=== PATIENT | male | born 1950 | race Caucasian/White ===

== ENCOUNTER 2016-11-23 07:37 | Day surgery (SDC) | payer MEDICARE, OTHER ==
[2016-11-18 09:42] VITALS: BMI 36.6
[~2016-11-23 07:37] MED LIST: ALPRAZolam 0.25 MG TAB PO PRN; ALPRAZolam 0.5 MG TAB PO PRN; ASPIRIN 325 MG TAB PO STA; ATORVASTATIN 80 MG TAB PO STA; NITROGLYCERIN SL TABS 0.4 MG TAB SUBLINGUAL PRN; SODIUM CHLORIDE 0.9% 1,000 ML in EMPTY BAG 1 BAG IV ONE
[2016-11-23 08:11] LABS: Glucose,Whole Blood 140 mg/dL (75-99)
[2016-11-23] MEDS ORDERED: MIDAZOLAM 2 MG/2 ML VIAL ONE ×2 (08:43→09:09)
[2016-11-23] MEDS ORDERED: VERAPAMIL 2.5 MG/ML 2 ML AMP ONE (08:43)
[2016-11-23] MEDS ORDERED: LIDOCAINE 2% INJ 20 MG/ML (20 ML MDV) ONE (08:43)
[2016-11-23 08:54] LABS: Anion Gap 13 mmol/L; Blood Urea Nitrogen 18 mg/dL (9-20); Carbon Dioxide 23 mmol/L (22-30); Chloride 104 mmol/L (98-107); Glucose 144 mg/dL (74-99); Non-African American GFR(MDRD) >60 (>60 ml/min/1.73 sqM); Potassium 4.6 mmol/L (3.5-5.1); Sodium 140 mmol/L (137-145)
[2016-11-23] MEDS ORDERED: HEPARIN SODIUM 1,000 UN/ML (10ML VL) ONE ×2 (09:06→09:54)
[2016-11-23] MEDS ORDERED: LIDOCAINE 2% INJ 20 MG/ML SQ ONE ×2 (09:07→09:08)
[2016-11-23] MEDS ORDERED: MIDAZOLAM 2 MG/2 ML VIAL IV ONE ×2 (09:08→09:15)
[2016-11-23 09:09] LABS: Aty Lym Flag Slight; CHCM 34.2; HCT 44.9 % (39.0-53.0); HDW 2.58; HGB 15.4 gm/dL (13.0-17.5); MCH 32.2 pg (25.0-35.0); MCHC 34.3 g/dL (31.0-37.0); MCV 93.8 fL (80.0-100.0); Mean Platelet Volume 6.6; RBC 4.79 m/uL (4.30-5.90); RDW 12.2 % (11.5-15.5); WBC 5.9 k/uL (3.8-10.6); WBC (Perox) 5.71
[2016-11-23] MEDS ORDERED: VERAPAMIL SYRINGE (5 MG/10 ML) INTRAARTER ONE ×2 (09:13→09:42)
[2016-11-23] MEDS ORDERED: HEPARIN SODIUM 1,000 UN/ML (10ML VL) IV ONE (09:15)
[2016-11-23] MEDS ORDERED: NITROGLYCERIN 1000MCG/10ML SYRINGE INTRACORON ONE ×2 (09:19→09:34)
[2016-11-23 09:23] LABS: Add Differential Manual Differential
[2016-11-23] MEDS ORDERED: TICAGRELOR 90 MG TAB ONE (09:26)
[2016-11-23] MEDS ORDERED: TICAGRELOR 90 MG TAB PO ONE (09:28)
[2016-11-23 09:30] LABS: Band Neutrophils % 1 %; Manual Review Performed; Nucleated Red Blood Cells 0 /100 WBC (0-0); Total Cells Counted 100
[2016-11-23] MEDS ORDERED: fentaNYL (PF) 50 MCG/ML 2 ML AMP ONE (09:30)
[2016-11-23 09:31] LABS: RBC Morphology Normal
[2016-11-23] MEDS ORDERED: fentaNYL (PF) 50 MCG/ML 2 ML AMP IV ONE (09:32)
[2016-11-23] MEDS ORDERED: IODIXANOL 320 MG/ML 100 ML INTRAARTER ONE (09:43)
[2016-11-23] MEDS ORDERED: ATROPINE SULFATE 0.1 MG/ML 10ML SYRINGE IV PRN (09:53)
[2016-11-23] MEDS ORDERED: RX INFO: IV CONTRAST WAS GIVEN 1 EACH MISC MISCELLANE PRN (09:53)
[2016-11-23] MEDS ORDERED: ZOLPIDEM 5 MG TAB PO PRN (09:53)
[2016-11-23] MEDS ORDERED: NITROGLYCERIN SL TABS 0.4 MG TAB SUBLINGUAL PRN (09:53)
[2016-11-23] MEDS ORDERED: MAG HYDROX/AL HYDROX/SIMETH 30 ML CUP PO PRN (09:53)
[2016-11-23] MEDS ORDERED: SODIUM CHLORIDE 0.9% 1,000 ML IV SCH (10:00)
--- NOTE | 2016-11-23 11:05 | CC ---
CARDIAC CATHETERIZATION REPORT DATE OF SERVICE: 11/23/2016 PERFORMING PHYSICIAN: Abraham Hughes MD, Composite [employer] Technician. PROCEDURE PERFORMED: 1. Selective right and left coronary angiogram. 2. Left heart catheterization. 3. Successful stenting of the proximal LAD using 2.5 x 8 mm Xience SALTY with good angiographic results. INDICATION: This is a pleasant 65-year-old gentleman who sees Dr. Yaquelin Oreilly as an outpatient who was experiencing chest discomfort and underwent myocardial perfusion imaging stress test and that revealed apical ischemia. Because of that, heart catheterization was recommended from right radial approach. COMPLICATION: None. LEVEL OF SEDATION: Moderate with sedation length of 38 minutes. PROCEDURE DESCRIPTION: After obtaining an informed consent, the patient was brought to the [facility] [employer] [facility]. His right radial artery was cannulated using micropuncture technique, the micropuncture wire passed easily. Then I placed a 6-Portuguese sheath in the right radial artery. Subsequently, I did give the patient 2 mg of verapamil IA and 10,000 units of heparin IV. Subsequently I did selective right and left coronary angiogram using JR4 and JL3.5 catheters. After that, I did left heart catheterization using 6-Portuguese pigtail catheter. Subsequently, I did intervene on the LAD. Please see a separate paragraph for that. SELECTIVE CORONARY ANGIOGRAM: 1. The right coronary artery is a large caliber vessel and it is a dominant vessel. The right coronary artery is angiographically normal. It distally bifurcates into PDA and PLV branches. Both are angiographically normal. 2. The left main has mild disease only and it is a calcified left main. It bifurcates into left circumflex, ramus intermedius, and left anterior descending artery. 3. The left circumflex is a large caliber vessel. It is a nondominant vessel. The proximal left circumflex appeared to have mild disease only and gives rise into a large OM branch which seems to be angiographically normal and bifurcates into 2 separate branches, both are angiographically normal and the left circumflex continues after that as a small caliber vessel in the AV groove. 4. The ramus intermedius is a moderate caliber vessel with disease in the proximal portion about 50%. 5. The LAD. The proximal LAD has a lesion, appeared to be hazy and seems to be in the range of 50%. It gives rise into a large first diagonal branch which seems to be angiographically normal and the LAD in the mid and distal portion appeared to be angiographically normal. 6. PCI of the LAD. Heparin was given in the beginning. After that, I did wire the LAD using a whisper wire. After that, I did direct stenting on the lesion in the proximal LAD using 2.5 x 8 mm Xience SALTY where the stent was positioned under fluoroscopy guidance and deployed under 18 atmospheres for 20 seconds with the following angiogram showed good angiographic results without perforation and without dissection with good flow and without any pinch on the diagonal. CONCLUSION: 1. Intermittent episodes of chest discomfort associated with abnormal myocardial perfusion imaging stress test showing apical ischemia. 2. Normal right coronary artery and a dominant right coronary artery. 3. Mild disease involving the left main, which is a calcified left main. 4. Mild disease involving the left circumflex coronary system. 5. Intermediate disease involving the ramus intermedius coronary artery. 6. Severe disease involving the proximal LAD just proximal to the bifurcation of a diagonal branch. 7. Successful stenting of the proximal LAD using 2.5 x 8 mm Xience SALTY with good angiographic results. POSTPROCEDURE MANAGEMENT: 1. Dual anti-platelet therapy. 2. Risk factor modifications. Will follow up with the patient. MMODL / IJN: [id number] /
[2016-11-23] MEDS ORDERED: INSULIN LISPRO (humaLOG) 300 UNIT/3 ML VIAL SQ ONE (13:28)
[2016-11-23 14:11] LABS: Glucose,Whole Blood 210 mg/dL (75-99)
[2016-11-23 16:53] LABS: Glucose,Whole Blood 164 mg/dL (75-99)
[2016-11-23] MEDS ORDERED: ASPIRIN 81 MG PO SCH (17:30)
[2016-11-23] MEDS: INSULIN LISPRO (humaLOG) 300 UNIT/3 ML VIAL SQ SCH ×2 (17:38→21:13)
[2016-11-23 20:47] LABS: Glucose,Whole Blood 160 mg/dL (75-99)
[2016-11-23] MEDS ORDERED: ATORVASTATIN 40 MG TAB PO SCH (21:00)
[2016-11-23 21:01] LABS: Hemoglobin A1C 6.7 % (4.2-6.1)
[2016-11-23] MEDS: TICAGRELOR 90 MG TAB PO SCH (21:19)
[2016-11-23 21:42] VITALS: RESP 16
[2016-11-24 06:05] LABS: Glucose,Whole Blood 147 mg/dL (75-99)
[2016-11-24 06:49] LABS: Basophils % (A) 1 %; CH 33.1; CHCM 34.6; Eosinophils # (A) 0.2 k/uL (0-0.7); Eosinophils % (A) 3 %; HCT 42.8 % (39.0-53.0); HDW 2.47; HGB 14.1 gm/dL (13.0-17.5); Luc # (Auto) 0.24; Luc % (Auto) 4; Lymphocytes # (A) 1.6 k/uL (1.0-4.8); Lymphocytes % (A) 26 %; MCH 31.8 pg (25.0-35.0); MCV 96.2 fL (80.0-100.0); Mean Platelet Volume 6.8; Monocytes # (A) 0.5 k/uL (0-1.0); Monocytes % (A) 8 %; Neutrophils # (A) 3.7 k/uL (1.3-7.7); Neutrophils % (A) 59 %; RBC 4.45 m/uL (4.30-5.90); RDW 13.5 % (11.5-15.5); WBC 6.2 k/uL (3.8-10.6); WBC (Perox) 6.57
[2016-11-24 06:56] LABS: Anion Gap 11 mmol/L; Blood Urea Nitrogen 18 mg/dL (9-20); Calcium 9.3 mg/dL (8.4-10.2); Carbon Dioxide 24 mmol/L (22-30); Chloride 105 mmol/L (98-107); Glucose 148 mg/dL (74-99); Non-African American GFR(MDRD) >60 (>60 ml/min/1.73 sqM); Potassium 4.4 mmol/L (3.5-5.1); Sodium 140 mmol/L (137-145)
[2016-11-24] MEDS: INSULIN LISPRO (humaLOG) 300 UNIT/3 ML VIAL SQ SCH (07:02)
[2016-11-24] MEDS ORDERED: PANTOPRAZOLE 40 MG TABLET PO SCH (07:30)
[2016-11-24 08:05] VITALS: BP 148/74; PULSE 75; TEMP 97
[2016-11-24] MEDS: TICAGRELOR 90 MG TAB PO SCH (08:14)
[2016-11-24] MEDS ORDERED: LISINOPRIL 5 MG TAB PO SCH (09:00)
--- NOTE | 2016-11-24 09:45 | DS ---
DISCHARGE SUMMARY ADMISSION DATE: 11/23/2016 DISCHARGE DATE: 11/24/2016 BRIEF HISTORY: This is a pleasant 65-year-old gentleman who sees Dr. Oreilly as an outpatient who was experiencing intermittent episodes of chest discomfort and underwent myocardial perfusion imaging stress test and that showed apical ischemia. He underwent heart catheterization yesterday from right radial artery approach and that showed severe disease involving the proximal LAD which was stented using 2.5 x 8 mm Xience drug- eluting stent with good angiographic results and without any complication. The patient is going to be discharged home on dual anti-platelet and statin and he will follow up with Dr. VC Oreilly in the office as an outpatient. MMODL / IJN: [id number] /
== END 2016-11-24 11:28 | disposition home or self-care (01) ==
LOC: CATHCVL 07:37 → 6SEL 13:11 → CATHCVL 11-24 11:28
PROVIDERS: ATTEND Internal Medicine Interventional Cardiology
DX: I25.110 Atherosclerotic heart disease of native coronary artery with unstable angina pectoris (principal); I10 Essential (primary) hypertension; E11.9 Type 2 diabetes mellitus without complications; E78.2 Mixed hyperlipidemia; Z79.899 Other long term (current) drug therapy; Z79.84 Long term (current) use of oral hypoglycemic drugs; Z79.82 Long term (current) use of aspirin; Z79.51 Long term (current) use of inhaled steroids; Z82.49 Family history of ischemic heart disease and other diseases of the circulatory system
CPT/HCPCS: 93458; 99153 ×2; 99152; 80048 ×2; 83036; 85025 ×2; C9600; C1769 ×2; C1887; C1894; C1874; J2001; J2250; Q9967; J3010; J1644 ×2